=== PATIENT | male | born 1980 | race Two or more races ===

== ENCOUNTER 2024-03-12 15:12 | Emergency (ER) | payer OTHER ==
[~2024-03-12] VITALS: Ht 180.3 cm; Wt 78.0 kg
[2024-03-12] MEDS ORDERED: [UNRECOGNIZED DRUG - CODE] PO (16:30)
[2024-03-12] MEDS ORDERED: cloNIDine HCL 0.1 MG TAB PO ONE (16:30)
[2024-03-12 16:44] VITALS: BP 121/71; PULSE 102; RESP 17; TEMP 97.9; O2SAT 99
== END 2024-03-12 16:48 | disposition home or self-care (01) ==
LOC: ER 15:12
DX: T56.1X1A Toxic effect of mercury and its compounds, accidental (unintentional), initial encounter (principal); F15.10 Other stimulant abuse, uncomplicated; F41.9 Anxiety disorder, unspecified; I10 Essential (primary) hypertension; Z59.00 Homelessness unspecified; Y92.9 Unspecified place or not applicable